=== PATIENT | female | born 1990 | race Caucasian/White ===

== ENCOUNTER → 2016-09-21 | Outpatient (CLI) | payer MEDICAID ==
[~2016-09-21] MED LIST: CHOLESTYRAMINE1 PO1; GLYCOLAX17 GM/DOSE PO; KEFLEX 500MG.500 MG PO; NEXIUM40 MG/PACK PO; POTASSIUM CHLO10 ME3 PO; PROMETHAZINE HC25 M1 PO; RANITIDINE HCL150 MG PO; RISPERIDONE1 M2 PO; ZANTAC 150150 MG PO
== END ==
LOC: LAB 15:20
DX: R35.0 Frequency of micturition (principal)